=== PATIENT | female | born 1985 | race Caucasian/White ===

== ENCOUNTER 2016-05-11 13:17 | Emergency (ER) | payer SELFPAY ==
[~2016-05-11] VITALS: Ht 154.9 cm; Wt 58.2 kg
[2016-05-11] MEDS ORDERED: IBUPROFEN 600 MG TABLET PO ONE (16:15)
[2016-05-11] MEDS ORDERED: ACETAMINOPHEN 500 MG TABLET PO ONE (16:15)
[2016-05-11 16:16] VITALS: BP 121/74
== END 2016-05-11 16:17 | disposition home or self-care (01) ==
LOC: EMS 13:20
DX: S46.911A Strain of unspecified muscle, fascia and tendon at shoulder and upper arm level, right arm, initial encounter (principal); S20.219A Contusion of unspecified front wall of thorax, initial encounter; S80.01XA Contusion of right knee, initial encounter; R10.9 Unspecified abdominal pain; V43.52XA Car driver injured in collision with other type car in traffic accident, initial encounter; Y93.89 Activity, other specified; Y92.89 Other specified places as the place of occurrence of the external cause; Y99.8 Other external cause status
CPT/HCPCS: 99284